=== PATIENT | female | born 1990 | race Two or more races ===

== ENCOUNTER 2021-06-05 08:43 | Emergency (ER) | payer MEDICAID ==
[~2021-06-05] VITALS: Ht 165.1 cm; Wt 65.0 kg
[~2021-06-05 08:43] MED LIST: CYCL-1 PO; DIPH-423 PO; HYDR-4383 PO; PHE25R PR
[2021-06-05 08:48] VITALS: BP 136/66
[2021-06-05] MEDS ORDERED: ALBU6.7H9 INH (08:53)
== END 2021-06-05 10:00 | disposition home or self-care (01) ==
LOC: ER 08:44
DX: J06.9 Acute upper respiratory infection, unspecified (principal); Z20.822 Contact with and (suspected) exposure to COVID-19; J45.20 Mild intermittent asthma, uncomplicated; R42 Dizziness and giddiness; R53.1 Weakness; R05 Cough; R06.02 Shortness of breath; R50.9 Fever, unspecified; Z79.899 Other long term (current) drug therapy
CPT/HCPCS: 87635; 99283; C9803

== ENCOUNTER 2022-09-27 13:41 | Emergency (ER) | payer MEDICAID ==
[~2022-09-27] VITALS: Ht 157.5 cm; Wt 68.0 kg
[~2022-09-27 13:41] MED LIST changes: +ALBU6.7H14 INH
[2022-09-27 14:05] VITALS: BP 131/79
[2022-09-27] MEDS ORDERED: LIDOcaine 5% patch TP STA (15:53)
[2022-09-27] MEDS ORDERED: TRAM50TA2 PO (16:26)
== END 2022-09-27 16:37 | disposition home or self-care (01) ==
LOC: ER 13:41
DX: M25.512 Pain in left shoulder (principal); V98.8XXA Other specified transport accidents, initial encounter; Y93.89 Activity, other specified; Y92.89 Other specified places as the place of occurrence of the external cause; Y99.8 Other external cause status
CPT/HCPCS: 73030; 99283

== ENCOUNTER 2024-02-06 14:05 | Emergency (ER) | payer MEDICAID, OTHER ==
[~2024-02-06] VITALS: Ht 152.4 cm; Wt 56.4 kg
[2024-02-06 14:07] VITALS: BP 121/40; PULSE 84; RESP 16; TEMP 98.6; O2SAT 97
[2024-02-06] MEDS: acetaminophen 325mg tablet PO ONE (15:38)
== END 2024-02-06 15:49 | disposition home or self-care (01) ==
LOC: ER 14:06
DX: S06.0X0A Concussion without loss of consciousness, initial encounter (principal); X58.XXXA Exposure to other specified factors, initial encounter; Y93.89 Activity, other specified; Y92.89 Other specified places as the place of occurrence of the external cause; Y99.8 Other external cause status
CPT/HCPCS: 99282

== ENCOUNTER 2024-10-22 17:11 | Emergency (ER) | payer OTHER ==
[~2024-10-22] VITALS: Ht 154.9 cm; Wt 50.8 kg
[2024-10-22 18:23] VITALS: BP 113/69; PULSE 85; RESP 18; TEMP 97.7; O2SAT 99
== END 2024-10-22 21:15 | disposition left against medical advice (07) ==
LOC: ER 17:12 → EEVIPCON 17:12 → ER 21:15
DX: M54.2 Cervicalgia (principal); Z53.21 Procedure and treatment not carried out due to patient leaving prior to being seen by health care provider

== ENCOUNTER 2024-10-25 15:43 | Emergency (ER) | payer OTHER ==
[~2024-10-25] VITALS: Ht 154.9 cm; Wt 51.0 kg
[2024-10-25 16:06] VITALS: BP 98/71; PULSE 76; O2SAT 98
[2024-10-25 17:09] LABS: BASOPHILS # (AUTO) 0.1 X10'3 (0-0.2); BASOPHILS % (AUTO) 0.7 % (0-1); EOSINOPHILS # (AUTO) 0.1 X10'3 (0-0.9); HEMATOCRIT 37.9 % (35.0-45.0); HEMOGLOBIN 12.8 g/dl (12.0-16.0); LYMPHOCYTES # (AUTO) 2.8 X10'3 (1.1-4.8); LYMPHOCYTES % (AUTO) 32.1 % (21-51); MEAN CORPUSCULAR HEMOGLOBIN 32.7 PG (27.0-31.0); MEAN CORPUSCULAR HGB CONC 33.6 g/dL (33.0-36.5); MEAN CORPUSCULAR VOLUME 97.2 FL (78-98); MEAN PLATELET VOLUME 6.5 FL (7.4-10.4); MONOCYTES # (AUTO) 0.8 X10'3 (0-0.9); NEUTROPHILS % (AUTO) 57.2 % (42-75); PLATELET COUNT 377 X10'3 (140-440); RED BLOOD COUNT 3.91 X10'6 (4.20-5.60); WHITE BLOOD COUNT 8.7 X10'3 (4.5-11.0)
[2024-10-25 17:18] LABS: ALANINE AMINOTRANSFERASE 19 U/L (12-78); ALBUMIN 3.2 G/DL (3.4-5.0); ALBUMIN/GLOBULIN RATIO 0.8 (1.1-1.5); ALKALINE PHOSPHATASE 118 IU/L (46-116); ANION GAP 5 (8-16); ASPARTATE AMINO TRANSFERASE 16 U/L (10-37); BILIRUBIN,TOTAL 0.4 MG/DL (0.1-1.0); BLOOD UREA NITROGEN 17 MG/DL (7-18); CALCIUM 8.1 MG/DL (8.5-10.1); CHLORIDE 104 MMOL/L (99-107); CREATININE 0.68 MG/DL (0.40-0.90); GLUCOSE 116 MG/DL (70-104); SODIUM 140 MMOL/L (135-145); TOTAL CARBON DIOXIDE 30.8 MMOL/L (24-32); eCRCL 90 ML/MIN; eGFR > 90 ML/MIN
[2024-10-25] MEDS ORDERED: iohexol 350MG/ML 100ml bottle IV ONE (17:23)
[2024-10-25 18:17] LABS: URINE HCG NEGATIVE (NEG)
[2024-10-25 20:25] VITALS: RESP 18
[2024-10-25 20:29] VITALS: TEMP 98.1
== END 2024-10-25 20:07 | disposition home or self-care (01) ==
LOC: ER 15:44 → EEVIPCON 15:44 → ER 20:07
DX: T71.9XXA Asphyxiation due to unspecified cause, initial encounter (principal)
CPT/HCPCS: 36415; 70496; 70498; 80053; 81025; 85025; 99285; J7030; Q9967